=== PATIENT | female | born 1985 | race Caucasian/White ===

== ENCOUNTER 2016-12-04 07:02 | Inpatient (IN) | payer OTHER ==
[~2016-12-04] VITALS: Ht 162.6 cm; Wt 93.9 kg
--- NOTE | ~2016-12-04 | OR ---
[facility] AGE: 31 Y [address] ROOM: [place] [address] LOCATION: GOBS ADMIT DATE: 12/04/2016 OR/Procedure Report DISCHARGE DATE: FAMILY PHYSICIAN: PHYSICIAN, NO ATTENDING PHYSICIAN: Milady Escobar SURGEON: Milady Escobar MD IMPORT COORDINATION AND PRODUCTION HEAD: DATE OF PROCEDURE: 12/04/2016 PREOPERATIVE DIAGNOSES: 1. Intrauterine at 17 weeks by measurements. 2. Missed . POSTOPERATIVE DIAGNOSES: 1. Intrauterine at 17 weeks by measurements. 2. Missed . PROCEDURE: Induction of vaginal delivery. ESTIMATED BLOOD LOSS: 100 mL. ANESTHESIA: None. FINDINGS: What appears to be a female infant with postmortem changes. Apgars of 0 and 0. Appears to be about 17 weeks' size and morphologically normal. INDICATIONS: This patient is a 31-year-old, G3, P2-0-0-2 female, who presented to my office at 21 weeks by . I had seen her at about 17 weeks and 1 day. She had normal cardiac activity at that time. She presented then for her ultrasound and had no cardiac activity and the baby had the measurements ranging from late 16-week range to the early 17-week range. DESCRIPTION OF PROCEDURE: The patient had Cytotec placement 800 mcg x2 four hours apart and then her water spontaneously broke and she was noted to have parts in the vagina. I placed a speculum and with maternal expulsive efforts, the baby easily delivered followed by the placenta intact. COMPLICATIONS: None. CONDITION: Mother is stable. PAT[facility] AGE: 31 Y [address] ROOM: [place] [address] LOCATION: GOBS ADMIT DATE: 12/04/2016 OR/Procedure Report DISCHARGE DATE: FAMILY PHYSICIAN: PHYSICIAN, NO ATTENDING PHYSICIAN: Milady Escobar MD [id number]/[id number] /[id number] d: 12/04/16 2311 t: 12/05/16 1022, OPERATIVE SUMMARY
[~2016-12-04 07:02] MED LIST: FEOSOL325 MG PO; LEVOTHROID(SYN75 MCG PO; MOTRIN800 MG PO; PERCOCET 5-3251 EACH PO; PRENATAL 1+1)(P1 TAB PO; STOOL SOFT-STI1 EACH PO
[2016-12-04] MEDS ORDERED: LEVOTHROID (S100 MCG PO (08:27)
[2016-12-04 08:41] LABS: BASOPHIL % 0.4 %; EOSINOPHIL # 0.1 K/uL (0.0-0.5); HEMATOCRIT 35.2 % (33.0-46.0); HEMOGLOBIN 11.9 g/dL (11.0-15.0); IMMATURE GRANULOCYTE # 0.2 K/uL (0.0-0.3); IMMATURE GRANULOCYTE % 1.9 %; LYMPHOCYTE % 23.6 %; MCH 28.9 pg (27.0-34.0); MCHC 33.8 gm/dL (32.0-36.5); MCV 85.4 fl (83.0-98.0); MONOCYTE # 0.2 K/uL (0.0-1.0); MONOCYTE % 2.9 %; MPV 8.7 fl (9.4-12.4); NEUTROPHIL # (ANC) 5.8 K/uL (1.8-7.8); NEUTROPHIL % 70.2 %; NRBC % 0 /100WBC (0-0.00); PLATELET COUNT 258 K/uL (150-450); RDW-CV 13.1 % (11.9-14.6); WBC 8.3 K/uL (4.0-11.0)
[2016-12-04 08:43] LABS: RBC 4.12 M/uL (3.50-5.00)
[2016-12-05 05:10] LABS: BASOPHIL % 0.3 %; EOSINOPHIL # 0.1 K/uL (0.0-0.5); EOSINOPHIL % 1.5 %; HEMATOCRIT 32.9 % (33.0-46.0); HEMOGLOBIN 11.1 g/dL (11.0-15.0); IMMATURE GRANULOCYTE % 0.2 %; LYMPHOCYTE # 3.5 K/uL (0.8-4.0); LYMPHOCYTE % 40.6 %; MCH 29.1 pg (27.0-34.0); MCHC 33.7 gm/dL (32.0-36.5); MCV 86.1 fl (83.0-98.0); MONOCYTE # 0.5 K/uL (0.0-1.0); MONOCYTE % 5.5 %; MPV 8.5 fl (9.4-12.4); NEUTROPHIL # (ANC) 4.5 K/uL (1.8-7.8); NEUTROPHIL % 51.9 %; NRBC % 0 /100WBC (0-0.00); PLATELET COUNT 236 K/uL (150-450); RBC 3.82 M/uL (3.50-5.00); RDW-CV 12.8 % (11.9-14.6); WBC 8.7 K/uL (4.0-11.0)
[2016-12-05] MEDS ORDERED: PERCOCET 5-3251 EACH PO (08:21)
[2016-12-05] MEDS ORDERED: MOTRIN800 MG PO (08:22)
== END 2016-12-05 11:15 | disposition disaster alternative care site (69) | DRG 779 ==
LOC: GOBS 07:02
PROVIDERS: ADMIT Obstetrics & Gynecology
DX: O02.1 Missed abortion (principal); Z37.1 Single stillbirth
CPT/HCPCS: J2001; J2590; J3010; J7120